=== PATIENT | female | born 1945 | race Caucasian/White ===

== ENCOUNTER 2018-05-31 14:42 | Emergency (ER) | payer MEDICARE ==
[2018-05-31 15:01] VITALS: RESP 18
--- NOTE | 2018-05-31 15:13 | ED PDOC ---
Arrival/HPI - General Chief Complaint: Trauma Time Seen by Provider: 05/31/18 15:12 Historian: Patient - History of Present Illness Narrative History of Present Illness (Text): 05/31/18 15:13 72 y/o F w/ PMH hypertension presenting to the emergency department complaining of left shoulder pain s/p unwitnessed fall at home 3 hours ago. Patient reports she was walking to the bathroom when she fell and tried to break her fall with her left arm. She was able to arise and ambulate without assistance to the couch. She denies any head injuries, neck pain or loss of consciousness. Patient denies being on any blood thinners and states she is able to recall everything. Patient denies any fever, chills, chest pain, shortness of breath, nausea, vomiting, diarrhea, urinary symptoms, back pain, neck pain, headache, dizziness, numbness/tingling or any other complaints. Time/Duration: Other (3 hours ) Symptom Onset: Sudden Symptom Course: Unchanged Quality: Aching Activities at Onset: Rest Context: Walking, Home Past Medical History - Provider Review Nursing Documentation Reviewed: Yes - Travel History Have you recently traveled outside [place] w/in the past 3 mons?: No - Infectious Disease Hx of Infectious Diseases: None - Reproductive Menopause: Yes - Cardiac Hx Cardiac Disorders: No - Pulmonary Hx Respiratory Disorders: No - Integumentary Hx Dermatological Disorder: No - Musculoskeletal/Rheumatological Hx Musculoskeletal Disorders: No - Gastrointestinal Hx Gastrointestinal Disorders: No - Psychiatric Hx Substance Use: No - Anesthesia Hx Anesthesia: No Family/Social History - Physician Review Nursing Documentation Reviewed: Yes Family/Social History: No Known Family HX Smoking Status: Unknown If Ever Smoked Hx Alcohol Use: No Hx Substance Use: No Allergies/Home Meds Allergies/Adverse Reactions: Allergies No Known Allergies Allergy (Verified 05/31/18 15:01) Review of Systems - Physician Review All systems were reviewed & negative as marked: Yes - Review of Systems Constitutional: absent: Fevers, Other (Chills) Respiratory: absent: SOB Cardiovascular: absent: Chest Pain Gastrointestinal: absent: Diarrhea, Nausea, Vomiting Genitourinary Female: absent: Dysuria, Frequency, Hematuria Musculoskeletal: Other (Left shoulder pain). absent: Back Pain, Neck Pain Neurological: absent: Headache, Dizziness, Other (numbness or tingling ) Physical Exam Vital Signs Reviewed: Yes Vital Signs Temp Pulse Resp BP Pulse Ox 05/31/18 14:56 98.7 F 72 18 107/69 97 Temperature: Afebrile Blood Pressure: Normal Pulse: Regular Respiratory Rate: Normal Appearance: Positive for: Well-Appearing, Non-Toxic, Comfortable Pain Distress: None Mental Status: Positive for: Alert and Oriented X 3 - Systems Exam Head: Present: Atraumatic, Normocephalic Pupils: Present: PERRL Extroacular Muscles: Present: EOMI Conjunctiva: Present: Normal Mouth: Present: Moist Mucous Membranes Neck: Present: Normal Range of Motion Respiratory/Chest: Present: Clear to Auscultation, Good Air Exchange. No: Respiratory Distress, Accessory Muscle Use Cardiovascular: Present: Regular Rate and Rhythm, Normal S1, S2. No: Murmurs Abdomen: No: Tenderness, Distention, Peritoneal Signs Back: Present: Normal Inspection Upper Extremity: Present: NORMAL PULSES (radial pulses intact), Tenderness (Slight tenderness to palpation of acromioclavicular joint), Deformity (gross deformity noted to the left shoulder), Other (Left shoulder abducted and externally rotated). No: Cyanosis, Edema Lower Extremity: Present: Normal Inspection. No: Edema Neurological: Present: GCS=15, CN II-XII Intact, Speech Normal Skin: Present: Warm, Dry, Normal Color. No: Rashes Psychiatric: Present: Alert, Oriented x 3, Normal Insight, Normal Concentration Medical Decision Making ED Course and Treatment: 05/31/18 15:13 Impression: 72 year old female presents complaining of left shoulder pain s/p fall walking to the bathroom 3 hours ago. Differential Diagnosis included but are not limited to: Shoulder dislocation(anterior>>>posterior) Acromioclavicular joint segregation Humeral fracture Plan: -- CT Cervical Spine w/o contrast -- CT Head w/o contrast -- Labs -- EKG -- Chest X-ray -- Valium -- Shoulder left x-ray -- Reassess and disposition Progress Notes: 05/31/1800 XR reveals anterior dislocation with fracture of the glenoid rim. Spoke to Dr. You(orthopedic surgery) who agrees with plan for manual reduction and follow up on Monday with CD imaging brought with the patient. Patient and her family made aware. Consent form signed for procedural sedation. 05/31/18 19:09 Procedural sedation completed with patient tolerating procedure without difficulty. Post-reduction XRs taken with successful completion of relocated joint. Shoulder immobilizer applied. CDs made. Patient advised to follow up with orthopedic surgeon and demonstrate understanding. Patient is stable for discharge. - Lab Interpretations I have reviewed the lab results: Yes - RAD Interpretation Narrative RAD Interpretations (Text): 05/31/18 16:[address] reviewed by radiologist, shows: FINDINGS: HEMORRHAGE: No intracranial hemorrhage. BRAIN: No mass effect or edema. Cortical and cerebellar atrophy, periventricular small vessel disease. VENTRICLES: Unremarkable. No hydrocephalus. CALVARIUM: Unremarkable. PARANASAL SINUSES: Unremarkable as visualized. No significant inflammatory changes. MASTOID AIR CELLS: Unremarkable as visualized. No inflammatory changes. 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 IMPRESSION: No acute intracranial abnormalities. No significant findings to account for the clinical presentation. 05/31/18 19:05 Shoulder X-ray reviewed by radiologist shows: FINDINGS: BONES: Irregularity about the glenoid as well as humeral head consistent with acute fracture. The distal clavicle and underlying ribs appear intact. JOINTS: Anterior dislocation. SOFT TISSUES: Soft tissue swelling. No evidence of radiopaque foreign body. IMPRESSION: Anterior dislocation with irregularity about the glenoid and humeral head consistent with acute fracture. Chest X-ray reviewed by radiologist shows: FINDINGS: LUNGS: Increased lucencies especially within the bilateral upper lung zamora compatible with underlying emphysema. No focal consolidation. Please note that chest x-ray has limited sensitivity for the detection of pulmonary masses. PLEURA: No significant pleural effusion identified. No definite pneumothorax . CARDIOVASCULAR: Cardiomegaly. Ectatic aorta with atherosclerotic calcification present. OSSEOUS STRUCTURES: Osseous demineralization. Degenerative changes. Anterior dislocation of the left humeral head. Fracture deformity of the left humeral head/glenoid. VISUALIZED UPPER ABDOMEN: Unremarkable. OTHER FINDINGS: None. IMPRESSION: Cardiomegaly. Ectatic aorta. Atherosclerotic calcifications. Emphysema. Anterior dislocation of the left humeral head. Fracture deformity of the left humeral head/glenoid. Cerival spine CT reviewed by radiologist shows: FINDINGS: VERTEBRAE: No fracture. Rotary scoliosis. No destructive bony lesion. DISCS/SPINAL CANAL/NEURAL FORAMINA: No significant central canal or neural foraminal stenosis. Multilevel degenerative changes primarily disc space narrowing mid and lower cervical spine. PARASPINAL SOFT TISSUES: Unremarkable. OTHER FINDINGS: None. IMPRESSION: No acute findings related to/accounting for the clinical presentation. Monitoring Specialist: Radiologist - EKG Interpretation Interpreted by ED Physician: Yes Type: 12 lead EKG ED Procedural Sedation - Pre Anesthesia Assessment Chief Complaint: Trauma - Physical Exam/Review of Systems Vital Signs Reviewed: Yes Cardiovascular: Regular Rate and Rhythm, Normal S1, S2 Respiratory/Chest: Clear to Auscultation, Good Air Exchange. denies: Respiratory Distress Neurological: GCS=15, CN II-XII Intact, Speech Normal Abdomen: Normal Bowel Sounds. denies: Tenderness, Distention, Peritoneal Signs Mental Status: Alert and Oriented X 3 - Pre-Procedure Airway Assessment History of difficult intubation or surgical airway (i.e trach):: No Inability to extend neck:: No Mouth opening less than two finger breadth:: No Diagnosis of sleep apnea:: No Less than three finger breadth to hyoid bone:: No ASA Criteria: 1 - Healthy, normal. 2 - Mild systemic disease (No functional limitations, mildline obesity, DM withot complications, Hypertention). 3 - Severe systemic disease (Some functional limitation, stable angina, morbid obesity, controlled COPD/Asthma/CHF). 4 - Sever systemic disease constant threat to life (Unstable angina, active symptoms of COPD/Asthma, CHF/Hypertension. 5 - Moribund ASA Clarification: ASA II Mallampati (airway): Class III - Intra-Procedure (Medications) Medications Given: Discontinued Medications Diazepam (Valium) 5 mg PO ONCE ONE; Protocol Stop: 05/31/18 15:24 Last Admin: 05/31/18 16:00 Dose: 5 mg Morphine Sulfate (Morphine) 4 mg IVP STAT STA Stop: 05/31/18 17:03 Last Admin: 05/31/18 18:02 Dose: 4 mg MAR Pain Assessment Document 05/31/18 18:02 [facility] (Rec[facility] 05/[facility]/18 18:02 [facility] Pain Reassessment Is this a pain reassessment? Yes IVP Administration Document 05/31/18 18:02 OR (Rec: 05/31/18 18:02 [facility] Charges for Administration # of IVP Administrations 1 Propofol (Diprivan) 4 mg IVP ONCE ONE Stop: 05/31/18 18:19 - Post-Procedure Post Procedure Note: Patient noted to awaken from procedure with no complications. VSS with no nausea reported. Post-reduction shoulder immobilizer and splint ordered. - Scribe Statement The provider has reviewed the documentation as recorded by the Thoribe Symone Trevino Provider Scribe Attestation: All medical record entries made by the Thoribglynn were at my direction and pers onally dictated by me. I have reviewed the chart and agree that the record accurately reflects my personal performance of the history, physical exam, medical decision making, and the department course for this patient. I have also personally directed, reviewed, and agree with the discharge instructions and disposition. Disposition/Present on Arrival - Present on Arrival Any Indicators Present on Arrival: No History of DVT/PE: No History of Uncontrolled Diabetes: No Urinary Catheter: No History of Decub. Ulcer: No History Surgical Site Infection Following: None - Disposition Have Diagnosis and Disposition been Completed?: Yes Diagnosis: Anterior shoulder dislocation Disposition: HOME/ ROUTINE Disposition Time: 19:00 Patient Plan: Discharge Condition: IMPROVED Discharge Instructions (ExitCare): Shoulder Dislocation (DC), Shoulder Instability (DC) Additional Instructions: All medical record entries made by the Scribe were at my direction and personally dictated by me. I have reviewed the chart and agree that the record accurately reflects my personal performance of the history, physical exam, medical decision making, and the department course for this patient. I have also personally directed, reviewed, and agree with the discharge instructions and disposition. Please follow up with Dr. Pretty(orthopedic surgeon) on Monday and bring the CDs for the XR imaging with you. Please wear the shoulder immobilizer at night with sling in the daytime. Please take Motrin(ibuprofen) every SIX hours for pain WITH FOOD. Prescriptions: Cyclobenzaprine [Flexeril] 5 mg PO PRN PRN #10 tab PRN Reason: Muscle Spasm RX: Ibuprofen [Motrin Tab] 600 mg PO Q6H PRN 6 Days #24 tab PRN Reason: Pain, Moderate (4-7) Referrals: Tip Pretty DO [Staff Provider] - Follow up with primary Marita Varela MD [Medical Doctor] - Follow up with primary [facility] [place] [Outside] - Follow up with primary Forms: [employer] ([place])
[2018-05-31 16:08] LABS: BASO # 0.02 K/mm3 (0.0-2.0); BASO % 0.2 % (0.0-3.0); EOS % 0.1 % (1.5-5.0); GRAN # 10.54 (1.4-6.5); GRAN % 93.4 % (50.0-68.0); HEMOGLOBIN 14.6 g/dL (12.0-16.0); LYMPH # 0.5 (1.2-3.4); MEAN CELL VOLUME 90.4 fl (80.0-105.0); MEAN CORPUSCULAR HEMOGLOBIN 31.8 pg (25.0-35.0); MEAN CORPUSCULAR HGB CONC 35.2 g/dl (31.0-37.0); MEAN PLATELET VOLUME 10.4 fl (7.0-11.0); MONO # 0.3 (0.1-0.6); MONO % 2.3 % (1.0-6.0); PLATELET COUNT 175 10^3/uL (120.0-450.0); RBC 4.59 10^6/uL (3.5-6.1); RED CELL DISTRIBUTION WIDTH 12.4 % (11.5-14.5); WHITE BLOOD COUNT 11.3 10^3/uL (4.5-11.0)
[2018-05-31 16:16] LABS: ALB/GLOB RATIO 1.3 (1.1-1.8); ALBUMIN 4.6 g/dL (3.0-4.8); ALT/SGPT 21 U/L (7-56); AST/SGOT 35 U/L (14-36); BLOOD UREA NITROGEN 16 mg/dL (7-21); CALCIUM 9.5 mg/dL (8.4-10.5); GFR NON-AFRICAN AMERICAN > 60
[2018-05-31 16:28] LABS: TROPONIN I < 0.01 ng/mL
--- NOTE | 2018-05-31 16:39 | CT ---
Date of service: 05/31/2018 PROCEDURE: CT HEAD WITHOUT CONTRAST. HISTORY: headache COMPARISON: None available. TECHNIQUE: Axial computed tomography images were obtained through the head/brain without intravenous contrast. Supplemental Coronal and Sagittal projections created and reviewed. Radiation dose: Total exam DLP = 804.25 mGy-cm. This CT exam was performed using one or more of the following dose reduction techniques: Automated exposure control, adjustment of the mA and/or kV according to patient size, and/or use of iterative reconstruction technique. FINDINGS: HEMORRHAGE: No intracranial hemorrhage. BRAIN: No mass effect or edema. Cortical and cerebellar atrophy, periventricular small vessel disease. VENTRICLES: Unremarkable. No hydrocephalus. CALVARIUM: Unremarkable. PARANASAL SINUSES: Unremarkable as visualized. No significant inflammatory changes. MASTOID AIR CELLS: Unremarkable as visualized. No inflammatory changes. 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 IMPRESSION: No acute intracranial abnormalities. No significant findings to account for the clinical presentation.
[2018-05-31 16:46] LABS: BAND 1 % (0-2); LYMPHOCYTE 4 % (22.0-35.0); MONOCYTE 2 % (1.0-6.0); NEUTROPHIL 93 % (50.0-70.0)
[2018-05-31 16:47] LABS: PLATELET ESTIMATE NORMAL (NORMAL)
--- NOTE | 2018-05-31 17:00 | CT ---
Date of service: 05/31/2018 PROCEDURE: CT Cervical Spine without contrast HISTORY: fall COMPARISON: None available. TECHNIQUE: Axial computed tomography images were obtained of the cervical spine without the use of intravenous contrast. Coronal and sagittal reformatted images were created and reviewed. Radiation dose: Total exam DLP = 162.45 mGy-cm. This CT exam was performed using one or more of the following dose reduction techniques: Automated exposure control, adjustment of the mA and/or kV according to patient size, and/or use of iterative reconstruction technique. FINDINGS: VERTEBRAE: No fracture. Rotary scoliosis. No destructive bony lesion. DISCS/SPINAL CANAL/NEURAL FORAMINA: No significant central canal or neural foraminal stenosis. Multilevel degenerative changes primarily disc space narrowing mid and lower cervical spine. PARASPINAL SOFT TISSUES: Unremarkable. OTHER FINDINGS: None. IMPRESSION: No acute findings related to/accounting for the clinical presentation. Additional benign and/or incidental findings described above.
[2018-05-31] MEDS ORDERED: Morphine 4 mg/ml ISec IVP STA (17:02)
--- NOTE | 2018-05-31 17:40 | RAD ---
PROCEDURE: Radiographs of the Left Shoulder HISTORY: fall w/ possible shoulder dislocation COMPARISON: No prior. FINDINGS: BONES: Irregularity about the glenoid as well as humeral head consistent with acute fracture. The distal clavicle and underlying ribs appear intact. JOINTS: Anterior dislocation. SOFT TISSUES: Soft tissue swelling. No evidence of radiopaque foreign body. IMPRESSION: Anterior dislocation with irregularity about the glenoid and humeral head consistent with acute fracture.
[2018-05-31] MEDS ORDERED: Propofol 10 mg/ml Inj (20 ML) IVP ONE (18:18)
--- NOTE | 2018-05-31 18:31 | RAD ---
HISTORY: sob COMPARISON: None available. TECHNIQUE: Chest, one view. FINDINGS: LUNGS: Increased lucencies especially within the bilateral upper lung zamora compatible with underlying emphysema. No focal consolidation. Please note that chest x-ray has limited sensitivity for the detection of pulmonary masses. PLEURA: No significant pleural effusion identified. No definite pneumothorax . CARDIOVASCULAR: Cardiomegaly. Ectatic aorta with atherosclerotic calcification present. OSSEOUS STRUCTURES: Osseous demineralization. Degenerative changes. Anterior dislocation of the left humeral head. Fracture deformity of the left humeral head/glenoid. VISUALIZED UPPER ABDOMEN: Unremarkable. OTHER FINDINGS: None. IMPRESSION: Cardiomegaly. Ectatic aorta. Atherosclerotic calcifications. Emphysema. Anterior dislocation of the left humeral head. Fracture deformity of the left humeral head/glenoid.
[2018-06-01 00:26] VITALS: O2SAT 99
[2018-06-01 00:29] VITALS: BP 134/82; PULSE 69; TEMP 98.3
--- NOTE | 2018-06-01 10:02 | RAD ---
Date of service: 05/31/2018 PROCEDURE: Radiographs of the Left Shoulder HISTORY: s/p reduction for procedural sedation COMPARISON: Pre reduction examination May 30, 2018. FINDINGS: BONES: No visible fracture on this single view study. JOINTS: Normal. Glenohumeral and acromioclavicular joints preserved. No osteoarthritis. SOFT TISSUES: Normal. OTHER FINDINGS: None. IMPRESSION: Satisfactory postreduction alignment humeral head and glenoid. Limitations of the current examination: Single-view precludes optimal assessment for fracture.
--- NOTE | 2018-06-01 10:49 | CARD ---
APPROVED REPORT Date of service: 05/31/2018 EKG Measurement Heart [id number] <Conclusion> Normal sinus rhythm LVH by voltage Prolonged QTc
== END 2018-05-31 20:32 | disposition home or self-care (01) ==
LOC: ED 14:42
DX: S43.015A Anterior dislocation of left humerus, initial encounter (principal); W18.30XA Fall on same level, unspecified, initial encounter; Y93.01 Activity, walking, marching and hiking; Y92.009 Unspecified place in unspecified non-institutional (private) residence as the place of occurrence of the external cause
CPT/HCPCS: 23655; 70450; 71045; 72125; 73030; 80053; 84484; 85025; 93005; 96374; 99285; J2270; J2704